=== PATIENT | female | born 2000 | race Caucasian/White ===

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

== ENCOUNTER 2022-04-15 18:59 | Emergency (ER) | payer OTHER ==
[~2022-04-15] VITALS: Ht 149.9 cm; Wt 76.2 kg
[2022-04-15 19:23] VITALS: BP 100/59
--- NOTE | 2022-04-15 19:28 | NUR ---
PT AMBULATES TO BED 5 WITH STEADY GAIT
--- NOTE | 2022-04-15 19:30 | NUR ---
Pt coming from home ambulatory with steady gait. Pt c/o lower abdominal pain and lower back pain 5/10 and is intermittent. Pt states pain started today and is worried because she is about 7 weeks . Denies n/v. No chest pain and no sob. VSS. A&Ox4. Skin intact. Bed in lowest position.
--- NOTE | 2022-04-15 19:35 | NUR ---
Dr. Ochoa at bedside examining pt.
[2022-04-15] MEDS ORDERED: ACETAMINOPHEN EXTRA STRENGTH 500 MG TAB PO ONE (19:40)
[2022-04-15] MEDS ORDERED: NITR100C7 PO (19:46)
--- NOTE | 2022-04-15 19:58 | NUR ---
Patient discharged with v/s stable. Written and verbal after care instructions given and explained. Patient verbalized understanding. Ambulatory with steady gait. All questions addressed prior to discharge. Advised to follow up with PMD.
[2022-04-15 19:59] VITALS: BP 106/59
== END 2022-04-15 19:58 | disposition home or self-care (01) ==
LOC: MED 18:59
DX: O23.41 Unspecified infection of urinary tract in pregnancy, first trimester (principal); O26.891 Other specified pregnancy related conditions, first trimester; M54.50 Low back pain, unspecified; J45.909 Unspecified asthma, uncomplicated; Z3A.01 Less than 8 weeks gestation of pregnancy; Z88.0 Allergy status to penicillin; Z88.2 Allergy status to sulfonamides; Z79.899 Other long term (current) drug therapy
CPT/HCPCS: 81002; 81025; 87086; 99283